=== PATIENT | female | born 1970 | race Caucasian/White ===

== ENCOUNTER → 2021-03-18 | Outpatient (CLI) | payer OTHER ==
[~2021-03-18] MED LIST: BACTROBAN OINT22 GM EXT; CLEOCIN HCL300 MG PO; IBUPROFEN600 MG PO
[2021-03-18 17:47] LABS: HEMOGLOBIN 14.5 gm/dl (12.3-15.3); RED BLOOD COUNT 4.8 M/UL (4.00-5.10); WHITE BLOOD COUNT 5.8 K/UL (4.5-11.0)
[2021-03-18 17:57] LABS: BUN/CREATININE RATIO 31 (0-10)
== END ==
LOC: LAB 16:36
PROVIDERS: Nurse Practitioner Family
DX: I10 Essential (primary) hypertension (principal); E55.9 Vitamin D deficiency, unspecified; R53.83 Other fatigue; R09.89 Other specified symptoms and signs involving the circulatory and respiratory systems
CPT/HCPCS: 71046; 80053; 80061; 83036; 84443; 85027; 93005